=== PATIENT | male | born 1975 | race African-American/Black ===

== ENCOUNTER 2024-11-14 16:03 | Emergency (ER) | payer MEDICAID, OTHER ==
[~2024-11-14] VITALS: Ht 165.1 cm; Wt 65.8 kg
[2024-11-14 16:16] VITALS: BP 126/69; TEMP 97.9; O2SAT 99
[2024-11-14] MEDS ORDERED: TDAP [DIPH/PERTUSSIS/TET] 0.5 ML VIAL IM ONE (16:30)
[2024-11-14] MEDS: BACI/NEOM/POLY B OINT PKT 1 UDPKT PACKET TP ONE (16:30)
[2024-11-14] MEDS ORDERED: MUPI1OIN5 TP (16:33)
== END 2024-11-14 17:41 | disposition home or self-care (01) ==
LOC: ER 16:22
DX: S50.311A Abrasion of right elbow, initial encounter (principal); S50.312A Abrasion of left elbow, initial encounter; V18.4XXA Pedal cycle driver injured in noncollision transport accident in traffic accident, initial encounter; Y93.55 Activity, bike riding; Y92.89 Other specified places as the place of occurrence of the external cause; Y99.8 Other external cause status